=== PATIENT | female | born 1985 | race Caucasian/White ===

== ENCOUNTER 2016-10-10 16:56 | Emergency (ER) | payer OTHER, SELFPAY ==
[~2016-10-10] VITALS: Ht 157.5 cm; Wt 82.2 kg
[2016-10-10] MEDS ORDERED: FLUO20CA8 PO (17:34)
[2016-10-10] MEDS ORDERED: MULT-6 PO (17:35)
[2016-10-10 18:05] LABS: BLOOD UREA NITROGEN 21 mg/dL (7-18)
[2016-10-10 19:10] VITALS: BP 140/98
== END 2016-10-10 19:49 | disposition home or self-care (01) ==
LOC: ED 19:26
DX: S16.1XXA Strain of muscle, fascia and tendon at neck level, initial encounter (principal); G89.11 Acute pain due to trauma; F17.200 Nicotine dependence, unspecified, uncomplicated; W16.012A Fall into swimming pool striking water surface causing other injury, initial encounter; Y93.39 Activity, other involving climbing, rappelling and jumping off; Y99.8 Other external cause status; Y92.34 Swimming pool (public) as the place of occurrence of the external cause
CPT/HCPCS: 36415; 70450; 70486; 72125; 80048; 82040; 84703; 85025; 93005; 99285